=== PATIENT | female | born 1950 | race Caucasian/White ===

== ENCOUNTER 2017-09-14 07:04 | Emergency (ER) | payer OTHER ==
[~2017-09-14] VITALS: Ht 154.9 cm; Wt 66.0 kg
[~2017-09-14 07:04] MED LIST: CYCL-36 PO; DIFL500T PO; FENO1TAB76 PO; METO25 PO; PARO10TA; SIMV5TAB3 PO
[2017-09-14 07:13] VITALS: BP 158/67; PULSE 63; RESP 16; TEMP 98.8; O2SAT 97
[2017-09-14] MEDS ORDERED: LISI-515 PO (07:20)
[2017-09-14] MEDS ORDERED: ATOR10TA15 PO (07:20)
[2017-09-14] MEDS ORDERED: ASPI81CH7 CHEW (07:20)
[2017-09-14] MEDS ORDERED: PAXI10TA8 PO (07:20)
[2017-09-14] MEDS ORDERED: METO25TA3 PO (07:20)
[2017-09-14] MEDS ORDERED: diphenhydrAMINE HCL 50 MG/ML VIAL IV PUSH ONE (08:45)
[2017-09-14] MEDS ORDERED: methylPREDNISolone SOD SUCC 125 MG/2 ML VIAL IV PUSH ONE (08:45)
[2017-09-14] MEDS ORDERED: FAMOTIDINE 20 MG/2 ML VIAL IV PUSH ONE (08:45)
--- NOTE | 2017-09-14 08:45 | PD ---
HPI Chief Complaint: Skin Problem Time Seen by Provider: 08:28 Travel History International Travel<30 days: No Contact w/Intl Traveler<30days: No Traveled to known affect area: No History of Present Illness HPI 67yo F presents to the ED with c/o itchy rash on face since yesterday. Said 2 days ago, she was out in the garden. Yesterday, she started having itching in left lower face and then this morning she woke up with left periorbital swelling and itching. Pt said she had similar symptoms a year ago with poison oak. Denies any eye pain, fever, visual changes, pain with eye movement, chest pain, lip or tongue swelling, sob, n/v, abdominal pain, focal weakness or numbness. PFSH Past Medical History Hx Anticoagulant Therapy: Yes (BABY ASA DAILY) Depression: Yes Cardiovascular Problems: Yes (HTN, CHOL) High Cholesterol: Yes Diabetes: No Diminished Hearing: No Hypertension: Yes Musculoskeletal: Yes (HERNIATED DISC L4) Immunizations Current: No Tetanus Vaccination: Unknown ?: Not : 3 Para: 3 Past Surgical History Appendectomy: Yes Hysterectomy: Yes Social History Alcohol Use: No Tobacco Use: No Substance Use: No Allergies-Medications (Allergen,Severity, Reaction): Coded Allergies: No Known Allergies (Verified Adverse Reaction, Unknown, 09/14/17) Reported Meds & Prescriptions Reported Meds & Active Scripts Active Reported Aspirin Children's (Aspirin) 81 Mg Chew 81 Mg CHEW DAILY Paxil (Paroxetine HCl) 10 Mg Tab 10 Mg PO DAILY Metoprolol Tartrate 25 Mg Tab 25 Mg PO DAILY Lisinopril 20 Mg Tab 20 Mg PO DAILY Atorvastatin (Atorvastatin Calcium) 10 Mg Tab 10 Mg PO HS Review of Systems Except as stated in HPI: all other systems reviewed are Neg Physical Exam Narrative GENERAL: 67yo F not in distress. SKIN: Erythematous papules in left chin and left maxilla. HEAD: Atraumatic. Normocephalic. EYES: Left periorbital edema. EOMI. No pain with eye movement. Pupils 3mm and reactive bilaterally. ENT: No nasal bleeding or discharge. Mucous membranes pink and moist. NECK: Trachea midline. No JVD. CARDIOVASCULAR: Regular rate and rhythm. No murmur appreciated. RESPIRATORY: No accessory muscle use. Clear to auscultation. Breath sounds equal bilaterally. GASTROINTESTINAL: Abdomen soft, non-tender, nondistended. MUSCULOSKELETAL: No obvious deformities. No clubbing. No cyanosis. No edema. NEUROLOGICAL: Awake and alert. No obvious cranial nerve deficits. Motor grossly within normal limits. Normal speech. PSYCHIATRIC: Appropriate mood and affect; insight and judgment normal. Data Data Last Documented VS Vital Signs Date Time Temp Pulse Resp B/P (MAP) Pulse Ox O2 Delivery O2 Flow Rate FiO2 09/14/17 09:13 58 16 183/70 (107) 98 Room Air 09/14/17 07:13 98.8 Orders Orders Diphenhydramine Inj (Benadryl Inj) (09/14/17 08:45) Methylprednisolone So Succ Inj (Solumedr (09/14/17 08:45) Famotidine Inj (Pepcid Inj) (09/14/17 08:45) MDM Medical Decision Making Medical Screen Exam Complete: Yes Emergency Medical Condition: Yes Differential Diagnosis Contact dermatitis vs. allergic reaction Narrative Course 67yo F with itchy rash on face for 2 days. Denies any pain. Pt given diphenhydramine, methylprednisolone famotidine. Pt reevaluated at bedside and said itching has improved. Denies any sob or swelling in throat or mouth. Pt is well appearing. Return precautions given. Diagnosis Primary Impression: Allergic reaction Qualified Codes: T78.40XA - Allergy, unspecified, initial encounter Patient Instructions: General Instructions Departure Forms: Tests/Procedures Additional Instructions: Please follow up with your primary care physician in 1-2 days. Return to the ED if symptoms worsen. Med/Other Pt SpecificInfo: Prescription(s) given Scripts Prednisone (Deltasone) 20 Mg Tab 20 MG PO BID for 5 Days, #10 TAB 0 Refills Prov: Juliana Baig DO 09/14/17 Diphenhydramine (Diphenhydramine) 25 Mg Cap 25 MG PO Q6H Y for ITCHING for 5 Days, #20 CAP 0 Refills Prov: Juliana Baig DO 09/14/17 Disposition: 01 DISCHARGE HOME Condition: Stable Juliana Baig DO Sep 14, 2017 08:45
[2017-09-14 09:13] VITALS: BP 183/70; PULSE 58; RESP 16; O2SAT 98
[2017-09-14] MEDS ORDERED: DIPH25CA PO (10:10)
[2017-09-14] MEDS ORDERED: PRED-503 PO (10:10)
[2017-09-14 10:18] VITALS: BP 158/68
== END 2017-09-14 10:26 | disposition home or self-care (01) ==
LOC: PHED 07:04
DX: T78.40XA Allergy, unspecified, initial encounter (principal); R21 Rash and other nonspecific skin eruption; F32.9 Major depressive disorder, single episode, unspecified; I10 Essential (primary) hypertension; E78.00 Pure hypercholesterolemia, unspecified; Z79.82 Long term (current) use of aspirin; Z79.899 Other long term (current) drug therapy
CPT/HCPCS: 96374; 96375; 99284; J1200; J2930